=== PATIENT | male | born 1955 | race African-American/Black ===

== ENCOUNTER 2017-03-20 18:07 | Observation (INO) | payer MEDICAID, OTHER ==
[~2017-03-20] VITALS: Ht 185.4 cm; Wt 81.6 kg
[2017-03-20 19:26] LABS: BASOPHILS % 0.5 % (0.0-2.0); EOSINOPHILS % 1.6 % (0.0-5.0); HEMOGLOBIN. 14.4 g/dL (14.0-18.0); LYMPHOCYTES % 39.1 % (20.0-50.0); MEAN CORPUSCULAR HEMOGLOBIN 28.5 pg (28.0-32.0); MEAN CORPUSCULAR VOLUME 86.9 fL (80.0-94.0); MEAN PLATELET VOLUME 7.4 fl (7.4-10.4); MONOCYTES % 11.2 % (2.0-8.0); NEUTROPHILS % 47.6 % (40.0-76.0); PLATELET 237 x1000/uL (130-400); RED BLOOD CELL COUNT 5.06 mill/uL (4.7-6.1); RED CELL DISTRIBUTION WIDTH 15.1 % (11.6-14.6)
[2017-03-20 19:31] LABS: PARTIAL THROMBOPLASTIN TIME 25.4 sec (23.4-31.0); PROTHROMBIN TIME 10.8 sec (9.4-11.6)
[2017-03-20 19:33] LABS: CARBON DIOXIDE 29 mEq/L (21-32); CHLORIDE 104 mEq/L (98-107)
[2017-03-20 19:41] LABS: TROPONIN I < 0.02 ng/mL (0.00-0.04)
[2017-03-20] MEDS ORDERED: NITROGLYCERIN 0.4MG TABLET SL SL ONE (20:00)
[2017-03-20] MEDS ORDERED: LORAZEPAM 2MG/ML CPJ IV PRN (20:30)
[2017-03-20] MEDS ORDERED: ONDANSETRON HCL 4MG/2ML VIAL IV PRN (20:30)
[2017-03-20] MEDS ORDERED: GUAIFENESIN 200MG/10ML SUGAR FREE UDC PO PRN (20:30)
[2017-03-20] MEDS ORDERED: MAGNESIUM/ALUMINUM HYDROXIDE/SIMETHICONE 30ML UDC PO PRN (20:30)
[2017-03-20] MEDS ORDERED: IPRATROPIUM/ALBUTEROL 0.5-3(2.5)MG/3ML NEB INH PRN (20:30)
[2017-03-20] MEDS ORDERED: ACETAMINOPHEN 325MG TABLET PO PRN (20:30)
[2017-03-20] MEDS ORDERED: DOCUSATE SODIUM 100MG CAPSULE PO PRN (20:30)
[2017-03-20] MEDS ORDERED: KETOROLAC 15MG/ML VIAL IV PRN (20:30)
[2017-03-20] MEDS ORDERED: DIPHENHYDRAMINE 50MG/ML VIAL IV PRN (20:30)
[2017-03-20] MEDS ORDERED: CLONIDINE 0.1MG TABLET PO PRN (20:30)
[2017-03-20] MEDS ORDERED: NA PHOS,M-B/NA PHOS,DI-BA ENEMA 118ML PR PRN (20:30)
[2017-03-20] MEDS ORDERED: ZOLPIDEM TARTRATE 5MG TABLET PO PRN (20:30)
[2017-03-20] MEDS: NITROGLYCERIN 0.4MG TABLET SL SL PRN ×2 (20:54→21:01)
[2017-03-20] MEDS: FAMOTIDINE 20MG/2ML VIAL IV SCH (21:00)
[2017-03-20 23:20] VITALS: BP 141/80
[2017-03-20 23:45] VITALS: BP 141/80
[2017-03-21 03:04] LABS: CREATINE KINASE 99 IU/L (39-308); CREATINE KINASE MB FRACTION 1.2 ng/mL (0.5-3.6); TROPONIN I < 0.02 ng/mL (0.00-0.04)
[2017-03-21 04:00] VITALS: BP 134/82
[2017-03-21 08:00] VITALS: BP 136/88
[2017-03-21 08:25] LABS: CREATINE KINASE 92 IU/L (39-308); CREATINE KINASE MB FRACTION 1.3 ng/mL (0.5-3.6); TROPONIN I < 0.02 ng/mL (0.00-0.04)
[2017-03-21] MEDS: FAMOTIDINE 20MG/2ML VIAL IV SCH (08:44)
[2017-03-21 08:55] VITALS: BP 136/88
[2017-03-21] MEDS ORDERED: ASPIRIN 325MG EC TABLET PO SCH (09:00)
[2017-03-21] MEDS ORDERED: ENOXAPARIN 40MG/0.4ML SYR SUBCUT SCH (09:00)
== END 2017-03-21 10:40 | disposition left against medical advice (07) ==
LOC: ER 19:08 → 5WST 20:04 → INTOOBSV 20:04 → EDBEDREQ 20:17 → ENRESERV 22:26
PROVIDERS: ADMIT Internal Medicine; ATTEND Internal Medicine
DX: R07.89 Other chest pain (principal); I10 Essential (primary) hypertension; E88.09 Other disorders of plasma-protein metabolism, not elsewhere classified; Z79.82 Long term (current) use of aspirin
CPT/HCPCS: 36415; 71010; 73110; 80053; 80061; 82550; 82553; 83036; 83690; 84484; 85025; 85610; 85730; 93005; 93970; 96372; 96374; 96375; 99285; G0378; J1650; J1885; J3490

== ENCOUNTER 2017-10-24 22:11 | Inpatient (IN) | payer MEDICAID ==
[~2017-10-24] VITALS: Ht 185.4 cm; Wt 83.9 kg
[2017-10-24] MEDS ORDERED: ASPIRIN 81MG TABLET PO ONE (23:15)
[2017-10-24] MEDS ORDERED: MECLIZINE 25MG TABLET PO ONE (23:15)
[2017-10-24 23:21] LABS: CHLORIDE 105 mEq/L (98-107)
[2017-10-24 23:22] LABS: INR 1.1; PARTIAL THROMBOPLASTIN TIME 25.7 sec (23.4-31.0); PROTHROMBIN TIME 10.9 sec (9.4-11.6)
[2017-10-24 23:27] LABS: BASOPHILS % 0.6 % (0.0-2.0); EOSINOPHILS % 2.1 % (0.0-5.0); HEMATOCRIT. 42.2 % (42.0-52.0); HEMOGLOBIN. 14.2 g/dL (14.0-18.0); LYMPHOCYTES % 45.2 % (20.0-50.0); MEAN CORPUSCULAR HEMOGLOBIN 28.6 pg (28.0-32.0); MEAN CORPUSCULAR VOLUME 84.7 fL (80.0-94.0); MEAN PLATELET VOLUME 7.5 fl (7.4-10.4); NEUTROPHILS % 39.1 % (40.0-76.0); PLATELET 274 x1000/uL (130-400); RED BLOOD CELL COUNT 4.99 mill/uL (4.7-6.1); RED CELL DISTRIBUTION WIDTH 13.9 % (11.6-14.6)
[2017-10-24] MEDS ORDERED: SODIUM CHLORIDE 0.9% 1,000 ML IV ONE (23:45)
[2017-10-25 00:11] LABS: ETHANOL BLOOD < 10 mg/dL
[2017-10-25 02:45] VITALS: BP 136/87
[2017-10-25 04:00] VITALS: BP 136/87
[2017-10-25] MEDS ORDERED: MORPHINE SULFATE 4 MG/ML CPJ (NOT FOR IM USE) IV PRN ×2 (05:30→13:30)
[2017-10-25] MEDS: ASPIRIN 325MG EC TABLET PO SCH (09:15)
[2017-10-25] MEDS ORDERED: CARISOPRODOL 350 MG TABLET PO PRN (11:45)
[2017-10-25] MEDS ORDERED: ALPRAZOLAM 0.5 MG TABLET PO PRN (12:45)
[2017-10-25] MEDS: HYDROCODONE/ACETAMINOPHEN 5/325MG TABLET PO PRN (13:17)
[2017-10-25] MEDS ORDERED: LORAZEPAM 2MG/ML CPJ IV NR (15:00)
[2017-10-25 15:56] VITALS: BP 112/79
[2017-10-25 20:00] VITALS: BP 113/74
[2017-10-26] VITALS: BP 126/78
[2017-10-26 04:00] VITALS: BP 126/79
[2017-10-26 08:26] VITALS: BP 122/69
[2017-10-26] MEDS: ASPIRIN 325MG EC TABLET PO SCH (08:36)
[2017-10-26] MEDS: HYDROCODONE/ACETAMINOPHEN 5/325MG TABLET PO PRN ×2 (08:37→14:29)
[2017-10-26 12:25] VITALS: BP 118/72
[2017-10-26 13:09] VITALS: BP 118/72
[2017-10-26 14:29] VITALS: BP 139/67
== END 2017-10-26 15:40 | disposition home or self-care (01) | DRG 48 ==
LOC: ER 22:11 → 7WST 10-25 00:21 → ENRESERV 10-25 01:05 → 7WST 10-25 03:48
PROVIDERS: ADMIT Internal Medicine; ATTEND Internal Medicine
DX: M54.12 Radiculopathy, cervical region (principal); M54.16 Radiculopathy, lumbar region; R42 Dizziness and giddiness; Z86.718 Personal history of other venous thrombosis and embolism
CPT/HCPCS: 36415; 70450; 70551; 71045; 72131; 72141; 72148; 80053; 80061; 83880; 84443; 84484; 85025; 85610; 85730; 93005; 93971; 97162; 97166; 99285; G0482; J2060; J2270; J8597

== ENCOUNTER 2018-05-24 20:29 | Emergency (ER) | payer MEDICAID ==
[~2018-05-24] VITALS: Ht 175.3 cm; Wt 87.0 kg
[2018-05-24] MEDS ORDERED: ASPIRIN 81MG TABLET PO ONE (22:30)
[2018-05-24 23:38] LABS: BASOPHILS % 0.8 % (0.0-2.0); EOSINOPHILS % 1.7 % (0.0-5.0); HEMATOCRIT. 44.9 % (42.0-52.0); HEMOGLOBIN. 14.9 g/dL (14.0-18.0); LYMPHOCYTES % 42.8 % (20.0-50.0); MEAN CORPUSCULAR HEMOGLOBIN 28.6 pg (28.0-32.0); MEAN CORPUSCULAR VOLUME 86.1 fL (80.0-94.0); MEAN PLATELET VOLUME 8.1 fl (7.4-10.4); MONOCYTES % 10.2 % (2.0-8.0); NEUTROPHILS % 44.5 % (40.0-76.0); PLATELET 234 x1000/uL (130-400); RED BLOOD CELL COUNT 5.21 mill/uL (4.7-6.1); RED CELL DISTRIBUTION WIDTH 14.7 % (11.6-14.6)
[2018-05-24 23:43] LABS: PARTIAL THROMBOPLASTIN TIME 26.4 sec (23.4-31.0); PROTHROMBIN TIME 10.3 sec (9.1-11.1)
[2018-05-24 23:44] LABS: CHLORIDE 106 mEq/L (98-107)
[2018-05-25] MEDS ORDERED: IOHEXOL-350 100 ML BOTTLE ONE (00:28)
[2018-05-25 03:15] VITALS: BP 137/62
== END 2018-05-25 03:45 | disposition home or self-care (01) ==
LOC: ER 20:29
DX: R07.89 Other chest pain (principal); Q61.02 Congenital multiple renal cysts; D18.09 Hemangioma of other sites; Z86.718 Personal history of other venous thrombosis and embolism; Z79.01 Long term (current) use of anticoagulants
CPT/HCPCS: 36415; 70450; 71045; 71275; 74174; 80053; 83880; 84484; 85025; 85610; 85730; 93005; 99284; Q9967

== ENCOUNTER 2019-01-30 15:26 | Emergency (ER) | payer MEDICAID ==
[~2019-01-30] VITALS: Ht 185.4 cm; Wt 87.0 kg
[2019-01-30 15:56] VITALS: BP 128/81
== END 2019-01-30 20:11 | disposition left against medical advice (07) ==
LOC: ER 15:26
DX: Z53.21 Procedure and treatment not carried out due to patient leaving prior to being seen by health care provider (principal)

== ENCOUNTER 2019-03-24 21:43 | Emergency (ER) | payer MEDICARE, MEDICAID ==
[~2019-03-24] VITALS: Ht 182.9 cm; Wt 80.0 kg
[2019-03-24] MEDS: NITROGLYCERIN 0.4MG TABLET SL SL PRN ×2 (22:42→22:43)
[2019-03-24] MEDS ORDERED: ASPIRIN 81MG TABLET PO ONE (22:45)
[2019-03-24 23:29] LABS: BASOPHILS % 0.7 % (0.0-2.0); EOSINOPHILS % 1.2 % (0.0-5.0); HEMATOCRIT. 42.3 % (42.0-52.0); HEMOGLOBIN. 13.9 g/dL (14.0-18.0); LYMPHOCYTES % 49.1 % (20.0-50.0); MEAN CORPUSCULAR HEMOGLOBIN 28.2 pg (28.0-32.0); MEAN CORPUSCULAR VOLUME 86.2 fL (80.0-94.0); MEAN PLATELET VOLUME 7.5 fl (7.4-10.4); MONOCYTES % 8.4 % (2.0-8.0); NEUTROPHILS % 40.6 % (40.0-76.0); PLATELET 198 x1000/uL (130-400); RED BLOOD CELL COUNT 4.91 mill/uL (4.7-6.1); RED CELL DISTRIBUTION WIDTH 14.8 % (11.6-14.6)
[2019-03-24 23:35] LABS: CHLORIDE 107 mEq/L (98-107)
[2019-03-24 23:40] LABS: ETHANOL BLOOD 158 mg/dL
[2019-03-24 23:44] LABS: CREATINE KINASE 169 IU/L (39-308)
[2019-03-24 23:47] LABS: CREATINE KINASE MB FRACTION 1.1 ng/mL (0.5-3.6)
[2019-03-25 00:51] VITALS: BP 125/81
== END 2019-03-25 03:44 | disposition home or self-care (01) ==
LOC: ER 21:43
DX: T51.0X1A Toxic effect of ethanol, accidental (unintentional), initial encounter (principal); R07.89 Other chest pain; Y90.6 Blood alcohol level of 120-199 mg/100 ml; Z02.89 Encounter for other administrative examinations; Y92.89 Other specified places as the place of occurrence of the external cause
CPT/HCPCS: 36415; 71045; 80320; 82550; 82553; 83880; 84443; 84484; 93005; 99284; G0480

== ENCOUNTER 2021-12-16 19:18 | Emergency (ER) | payer MEDICARE, MEDICAID ==
[~2021-12-16] VITALS: Ht 190.5 cm; Wt 83.1 kg
[2021-12-16] MEDS ORDERED: HYDROCODONE/ACETAMINOPHEN 5/325MG TABLET PO ONE (23:45)
[2021-12-16] MEDS ORDERED: IBUPROFEN 400MG TABLET PO ONE (23:45)
[2021-12-17] MEDS ORDERED: IBUP-2029 MT (01:25)
[2021-12-17] MEDS ORDERED: CYCL10TA21 MT (01:25)
[2021-12-17 02:02] VITALS: BP 116/80
== END 2021-12-17 02:05 | disposition home or self-care (01) ==
LOC: ER 19:18
DX: M25.552 Pain in left hip (principal)
CPT/HCPCS: 73502; 99283

== ENCOUNTER 2023-01-03 23:43 | Emergency (ER) | payer MEDICARE, MEDICAID ==
[~2023-01-03] VITALS: Ht 185.4 cm; Wt 86.0 kg
[~2023-01-03 23:43] MED LIST: CYCL10TA21 MT; IBUP-2029 MT
[2023-01-03 23:45] VITALS: BP 115/75; PULSE 83; RESP 18; TEMP 99.4; O2SAT 99
[2023-01-04 00:13] LABS: BASOPHILS % 0.6 % (0.0-2.0); EOSINOPHILS % 0.6 % (0.0-5.0); HEMATOCRIT. 40.9 % (42.0-52.0); HEMOGLOBIN. 13.8 g/dL (14.0-18.0); LYMPHOCYTES % 22.1 % (20.0-50.0); MEAN CORPUSCULAR HEMOGLOBIN 28.8 pg (28.0-32.0); MEAN CORPUSCULAR VOLUME 85.7 fL (80.0-94.0); MEAN PLATELET VOLUME 6.9 fl (7.4-10.4); MONOCYTES % 9.3 % (2.0-8.0); NEUTROPHILS % 67.4 % (40.0-76.0); PLATELET 514 x1000/uL (130-400); RED BLOOD CELL COUNT 4.78 mill/uL (4.7-6.1); RED CELL DISTRIBUTION WIDTH 13.5 % (11.6-14.6)
[2023-01-04 00:50] LABS: CHLORIDE 105 mEq/L (98-107)
== END 2023-01-04 03:02 | disposition left against medical advice (07) ==
LOC: ER 23:43
DX: R06.02 Shortness of breath (principal)
CPT/HCPCS: 36415; 71045; 80053; 83880; 84484; 85025; 93005; 99285

== ENCOUNTER 2023-01-04 04:12 | Emergency (ER) | payer MEDICARE, MEDICAID ==
[~2023-01-04] VITALS: Ht 177.8 cm; Wt 80.0 kg
[2023-01-04 04:16] VITALS: PULSE 79; RESP 18
[2023-01-04 04:19] VITALS: BP 119/69; TEMP 98.4; O2SAT 98
== END 2023-01-04 05:44 | disposition left against medical advice (07) ==
LOC: ER 04:12
DX: Z53.21 Procedure and treatment not carried out due to patient leaving prior to being seen by health care provider (principal)
CPT/HCPCS: 99281

== ENCOUNTER 2024-08-07 10:21 | Emergency (ER) | payer MEDICARE, MEDICAID ==
[~2024-08-07] VITALS: Ht 185.4 cm; Wt 81.6 kg
[2024-08-07 10:29] VITALS: O2SAT 100
[2024-08-07 10:30] VITALS: BP 141/73; PULSE 60; RESP 18; TEMP 37.1; O2SAT 100
[2024-08-07 11:31] LABS: CHLORIDE 107 mEq/L (98-107); POTASSIUM 3.9 mEq/L (3.5-5.1); SODIUM 141 mEq/L (136-145)
[2024-08-07 11:32] LABS: CALCIUM 8.6 mg/dL (8.7-10.4); CARBON DIOXIDE 30 mEq/L (21-32)
[2024-08-07 11:37] LABS: CREATININE 0.9 mg/dL (0.6-1.3); GLUCOSE 66 mg/dL (70-105); UREA NITROGEN BLOOD 9 mg/dL (9-23)
[2024-08-07 11:47] LABS: BASOPHILS % 0.8 % (0.0-2.0); HEMATOCRIT. 40.6 % (42.0-52.0); HEMOGLOBIN. 13.2 g/dL (14.0-18.0); LYMPHOCYTES % 31.5 % (20.0-50.0); MEAN CORPUSCULAR HEMOGLOBIN 28.3 pg (28.0-32.0); MEAN CORPUSCULAR HGB CONC 32.6 g/dL (31.0-37.0); MEAN CORPUSCULAR VOLUME 86.6 fL (80.0-94.0); MEAN PLATELET VOLUME 7.4 fl (7.4-10.4); NEUTROPHILS % 56.7 % (40.0-76.0); PLATELET 314 x1000/uL (130-400); RED BLOOD CELL COUNT 4.69 mill/uL (4.7-6.1); RED CELL DISTRIBUTION WIDTH 14.5 % (11.6-14.6); WHITE BLOOD COUNT 5.6 x1000/uL (4.5-11.0)
== END 2024-08-07 12:49 | disposition left against medical advice (07) ==
LOC: ER 10:21
DX: M79.89 Other specified soft tissue disorders (principal); I44.4 Left anterior fascicular block; Z53.21 Procedure and treatment not carried out due to patient leaving prior to being seen by health care provider
CPT/HCPCS: 36415; 80048; 85025; 93005

== ENCOUNTER 2024-10-12 07:52 | Emergency (ER) | payer MEDICARE, MEDICAID ==
[~2024-10-12] VITALS: Ht 185.4 cm; Wt 81.6 kg
[~2024-10-12 07:52] MED LIST changes: +APIX5TAB MT; +APIX5TAB PO; +ATOR40TA70 MT
[2024-10-12 07:53] VITALS: O2SAT 100
[2024-10-12] MEDS ORDERED: APIX5TAB MT (08:20)
[2024-10-12 08:41] VITALS: BP 160/99; PULSE 96; RESP 14; TEMP 36.7; O2SAT 100
== END 2024-10-12 08:42 | disposition home or self-care (01) ==
LOC: ER 07:52
DX: Z76.0 Encounter for issue of repeat prescription (principal); Z79.899 Other long term (current) drug therapy; Z86.718 Personal history of other venous thrombosis and embolism
CPT/HCPCS: 99281

== ENCOUNTER 2024-12-06 21:39 | Emergency (ER) | payer MEDICARE, MEDICAID ==
[~2024-12-06] VITALS: Ht 180.3 cm; Wt 82.0 kg
[2024-12-06 21:58] VITALS: O2SAT 98
[2024-12-06] MEDS ORDERED: APIX5TAB MT (22:30)
[2024-12-06 22:43] VITALS: BP 138/78; PULSE 98; RESP 17; TEMP 36.7; O2SAT 99
== END 2024-12-06 22:49 | disposition home or self-care (01) ==
LOC: ER 21:39
DX: Z76.0 Encounter for issue of repeat prescription (principal); Z79.899 Other long term (current) drug therapy; Z86.718 Personal history of other venous thrombosis and embolism; Z79.01 Long term (current) use of anticoagulants
CPT/HCPCS: 99281

== ENCOUNTER 2025-03-08 17:07 | Emergency (ER) | payer MEDICARE, MEDICAID ==
[~2025-03-08] VITALS: Ht 177.8 cm; Wt 77.0 kg
[~2025-03-08 17:07] MED LIST changes: +IBUP-1455 MT; -IBUP-2029 MT
[2025-03-08 17:18] VITALS: O2SAT 97
[2025-03-08] MEDS ORDERED: APIX5TAB MT (18:13)
[2025-03-08 19:06] VITALS: BP 155/88; PULSE 54; RESP 16; TEMP 36.6; O2SAT 100
== END 2025-03-08 19:07 | disposition home or self-care (01) ==
LOC: ER 17:07
DX: Z76.0 Encounter for issue of repeat prescription (principal); Z79.899 Other long term (current) drug therapy; Z86.718 Personal history of other venous thrombosis and embolism
CPT/HCPCS: 99281